=== PATIENT | male | born 1990 | race Caucasian/White ===

== ENCOUNTER 2016-08-17 16:41 | Emergency (ER) | payer SELFPAY ==
[~2016-08-17] VITALS: Ht 167.6 cm; Wt 84.0 kg
[2016-08-17 17:12] VITALS: Ht 167.6 cm; Wt 84.0 kg
== END 2016-08-17 18:49 | disposition left against medical advice (07) ==
LOC: FTE 16:41
DX: Z53.21 Procedure and treatment not carried out due to patient leaving prior to being seen by health care provider (principal)